=== PATIENT | female | born 1960 | race Caucasian/White ===

== ENCOUNTER 2022-11-06 10:58 | Emergency (ER) | payer BC ==
[2022-11-06 11:16] VITALS: BP 152/79; PULSE 68; RESP 18; TEMP 97.9; BMI 44.2
[2022-11-06] MEDS ORDERED: ACETAMINOPHEN 325 MG TABLET (FP) PO ONE (13:15)
[2022-11-06] MEDS ORDERED: ACETAMINOPHEN 325 MG TABLET (FP) ONE (13:20)
== END 2022-11-06 14:56 | disposition home or self-care (01) ==
LOC: JER 10:58
DX: U07.1 COVID-19 (principal); E86.0 Dehydration
CPT/HCPCS: 93005; 93010; 99283-25

== ENCOUNTER 2022-11-09 16:25 | Emergency (ER) | payer BC ==
[2022-11-09 16:36] VITALS: BP 125/83; PULSE 66; RESP 20; TEMP 97.7; BMI 34.2
[2022-11-09] MEDS ORDERED: ACETAMINOPHEN 1000 MG/100 ML BAG IVPB ONE (17:41)
[2022-11-09] MEDS ORDERED: SODIUM CHLORIDE 1,000 ML IV STA (17:41)
[2022-11-09] MEDS ORDERED: ACETAMINOPHEN INJECTION 100 ML IVPB ONE (17:52)
[2022-11-09 18:34] LABS: BASO % 0.8 % (0-2.0); EOS % 0.9 % (0-4.5); HEMATOCRIT 37.4 % (32.4-45.2); HEMOGLOBIN 12.5 GM/dL (10.7-15.3); LYMPH % 31.3 % (8-40); MCH 27.7 pg (25.7-33.7); MCHC 33.5 g/dl (32.0-36.0); MEAN CELL VOLUME 82.8 fl (80-96); MEAN PLT VOLUME 8.3 fl (7.5-11.1); MONO % 3.7 % (3.8-10.2); NEUT % 63.3 % (42.8-82.8); PLATELET COUNT 328 10^3/uL (134-434); RBC 4.51 M/mm3 (3.60-5.2); RDW 13.9 % (11.6-15.6); WHITE BLOOD COUNT 9.7 K/mm3 (4.0-10.0)
[2022-11-09 18:59] LABS: ALBUMIN 3.8 g/dl (3.4-5.0); BLOOD UREA NITROGEN 14.7 mg/dL (7-18); CALCIUM 9.4 mg/dL (8.5-10.1); MAGNESIUM 1.9 mg/dL (1.8-2.4)
[2022-11-09 19:01] LABS: CREATININE 0.7 mg/dL (0.55-1.3)
[2022-11-09 19:03] LABS: BILIRUBIN,TOTAL 0.4 mg/dL (0.2-1); TOT PROT 7.8 g/dl (6.4-8.2)
== END 2022-11-09 20:37 | disposition home or self-care (01) ==
LOC: JER 16:25
PROC: 3E0333Z Introduction of Anti-inflammatory into Peripheral Vein, Percutaneous Approach (ICD-10-PCS; principal; 2022-11-09)
PROC: 3E0337Z Introduction of Electrolytic and Water Balance Substance into Peripheral Vein, Percutaneous Approach (ICD-10-PCS; 2022-11-09)
DX: R53.1 Weakness (principal)
CPT/HCPCS: 36415; 71046-TC-FY; 80053; 83735; 84484; 85025; 93005; 93010; 99285-25

== ENCOUNTER 2022-11-25 12:40 | Emergency (ER) | payer BC ==
[2022-11-25 12:53] VITALS: BMI 35.9
[2022-11-25 13:38] LABS: HEMATOCRIT 39.7 % (32.4-45.2); MCH 26.6 pg (25.7-33.7); MCHC 32.8 g/dl (32.0-36.0); MEAN CELL VOLUME 81.1 fl (80-96); MEAN PLT VOLUME 8.4 fl (7.5-11.1); PLATELET COUNT 255 10^3/uL (134-434); RBC 4.89 M/mm3 (3.60-5.2); RDW 14.2 % (11.6-15.6)
[2022-11-25] MEDS ORDERED: ACETAMINOPHEN 1000 MG/100 ML BAG IVPB ONE (13:41)
[2022-11-25] MEDS ORDERED: ALBUTEROL SO4 2.5/IPRATROPIUM 0.5 INH SOL 3 ML VIAL.NEB. NEB ONE ×4 (13:41→15:13)
[2022-11-25] MEDS ORDERED: ACETAMINOPHEN INJECTION 100 ML IVPB ONE (13:54)
[2022-11-25 14:03] LABS: ALBUMIN 3.6 g/dl (3.4-5.0); BLOOD UREA NITROGEN 14.7 mg/dL (7-18); CALCIUM 9.1 mg/dL (8.5-10.1)
[2022-11-25 14:06] LABS: CREATININE 0.7 mg/dL (0.55-1.3)
[2022-11-25 14:08] LABS: BILIRUBIN,TOTAL 0.4 mg/dL (0.2-1); TOT PROT 7.7 g/dl (6.4-8.2)
[2022-11-25 14:11] LABS: ANISOCYTOSIS 0; HELMET CELLS 0; HOWELL-JOLLY BODIES 0; MACROCYTOSIS 0; OVALOCYTE 0; ROULEAU 0; SICKELED CELLS 0; TARGET CELLS 0; TEAR DROP CELLS 0; TOXIC GRANULATION 0
[2022-11-25] MEDS ORDERED: DEXAMETHASONE SOD PHOSPHATE 4 MG/1 ML VIAL IVPUSH ONE (15:11)
[2022-11-25] MEDS ORDERED: DEXAMETHASONE SOD PHOSPHATE 4 MG/1 ML VIAL ONE (15:13)
[2022-11-25 17:06] VITALS: BP 123/65; PULSE 69; RESP 20; TEMP 97.5
== END 2022-11-25 17:00 | disposition home or self-care (01) ==
LOC: JER 12:40
PROC: 3E033NZ Introduction of Analgesics, Hypnotics, Sedatives into Peripheral Vein, Percutaneous Approach (ICD-10-PCS; principal; 2022-11-25)
PROC: 3E033GC Introduction of Other Therapeutic Substance into Peripheral Vein, Percutaneous Approach (ICD-10-PCS; 2022-11-25)
PROC: 3E0F7GC Introduction of Other Therapeutic Substance into Respiratory Tract, Via Natural or Artificial Opening (ICD-10-PCS; 2022-11-25)
PROC: 3E0F7GC Introduction of Other Therapeutic Substance into Respiratory Tract, Via Natural or Artificial Opening (ICD-10-PCS; 2022-11-25)
DX: R06.02 Shortness of breath (principal); R06.2 Wheezing
CPT/HCPCS: 36415; 71046-TC-FY; 80053; 84484; 85025; 93005; 93010; 99285-25